=== PATIENT | male | born 1945 | race Caucasian/White ===

== ENCOUNTER → 2017-05-13 | Outpatient (CLI) | payer MEDICARE ==
--- NOTE | 2017-05-13 17:01 | Diagnostic Imaging Report ---
EXAMINATION: PET-CT TECHNIQUE: Serum glucose level at the time of the study is: 132 mg/dL. 12.0 mCi of FDG was administered intravenously followed by obtaining PET images with corresponding noncontrast CT scan images. The CT scan was performed for anatomic correlation and attenuation correction and was not performed according to the diagnostic protocol of the areas covered. The scan was performed from the head to mid thighs. INDICATION: Right lower lobe lung nodule. FINDINGS: There is symmetric FDG uptake in the brain. There is no significant hypermetabolic lesion seen in the neck. There is an intensely hypermetabolic right lower lobe pulmonary nodule with maximum SUV of 7.8. The localizer CT scan demonstrates a 2.1 cm lobulated nodule located in the posterior aspect of the superior segment of the right lower lobe. There is no hypermetabolic other nodules in the lungs or significant hypermetabolism in the dee or mediastinum. This nodule is suspicious for an early lung cancer. There is subcutaneous stranding in the subcutaneous fat along the right side of the pelvis with associated mild hypermetabolism, probably inflammatory related with maximum SUV of 4. There is prominent bowel activity seen within the abdomen and pelvis in a nonfocal fashion, likely physiologic or inflammatory. There is also prominent expected excretion of the tracer in the urinary tract. No suspicious hypermetabolic mass in the abdomen or pelvis seen otherwise. The prostate appears enlarged. IMPRESSION: 1. Significantly hypermetabolic 2.1 cm lung nodule in the superior segment of the right lower lobe highly suspicious for lung cancer. There is no evidence of lymph node spread or distant metastasis. 2. A CT-guided biopsy for tissue diagnosis or surgical resection is recommended. Dictated by: Dictated on workstation # [id number]
== END ==
LOC: RAD 08:38
PROVIDERS: ATTEND Internal Medicine Critical Care Medicine
DX: R91.1 Solitary pulmonary nodule (principal)

== ENCOUNTER → 2017-05-14 | Outpatient (CLI) | payer MEDICARE | LOC: RT 09:35 | PROVIDERS: ATTEND Nurse Practitioner Family | DX: R06.00 Dyspnea, unspecified (principal); R91.1 Solitary pulmonary nodule | CPT/HCPCS: 94060; 94726; 94729 ==

== ENCOUNTER → 2017-06-18 | Outpatient (CLI) | payer MEDICARE ==
[~2017-06-18] VITALS: Ht 188 cm; Wt 95.3 kg
[~2017-06-18] MED LIST: LIDOCAINE 1% INJ 20 ML (XYLOCAINE) VIAL INJ ONE; LIDOCAINE 1% INJ 50 ML (XYLOCAINE) VIAL ONE
[2017-06-18 13:30] VITALS: BP 124/68
[2017-06-18 14:00] VITALS: BP 124/71
--- NOTE | 2017-06-18 15:28 | Diagnostic Imaging Report ---
EXAMINATION: US-guided core biopsy-thyroid. INDICATION: Inferior right thyroid lobe nodule. Current history and physical and other medical records are reviewed prior to the procedure. CONSENT: Informed consent was obtained from the patient. The risks, benefits, potential complications and alternatives were reviewed and all questions answered to the patient's satisfaction. The patient's vital signs, cardiac rhythm, and pulse oximetry with observed throughout the procedure by qualified nursing personnel. Sedation/medications: none. FINDINGS: Solid nodule in the inferior aspect of the thyroid lobe. PROCEDURE: After maximal sterile barrier technique preparation and draping, 1% lidocaine was utilized for local anesthesia. With the patient in supine position, and via anterior approach, a 19-gauge guide needle is introduced into the inferior right thyroid lobe nodule under live ultrasound guidance. After confirming adequate positioning with saved ultrasound images, multiple 20 gauge core biopsy specimens were obtained. The patient tolerated the procedure well with no immediate complications. IMPRESSION: Successful US-guided core biopsy of inferior right thyroid lobe nodule. Dictated by: Dictated on workstation # [id number]
== END ==
LOC: RAD 12:09
PROVIDERS: ATTEND Nurse Practitioner Family
DX: E04.1 Nontoxic single thyroid nodule (principal)
CPT/HCPCS: 76942

== ENCOUNTER → 2017-07-15 | Outpatient (CLI) | payer MEDICARE ==
--- NOTE | 2017-07-16 13:32 | Diagnostic Imaging Report ---
EXAMINATION: I-123 thyroid scan and uptake. INDICATION: Thyroid nodule. FINDINGS: This study was performed following administration of 23 ?Ci of sodium I-123 in capsule form. There are no prior nuclear medicine studies available for comparison. The thyroid ultrasound exam performed on 05/08/2017 noted a 3.3 cm solid mass in the right lobe of the thyroid. The PET/CT exam performed on 05/13/2017 failed to show any hypermetabolic activity in this area. There was increased activity in a 2.1 cm nodule in the right lower lobe. Reportedly, the patient underwent an ultrasound-guided biopsy of the nodule in the right lobe of the thyroid on 06/18/2017. The results of that biopsy are not known to me. On this study, the 4-hour uptake is 3.2% and the 24-hour uptake is 8.62% (normal 10-30%). The reason for this slightly diminished uptake is uncertain. There is fairly even distribution of the radiotracer throughout both lobes of the thyroid. There is no photopenic or area of increased uptake in the right lobe to correspond to the 3.3 cm mass seen on the ultrasound exam. IMPRESSION: 1. There is no defect within the right lobe of the thyroid to correspond with the 3.3 cm nodule in the right lobe of the thyroid. Correlation with the patient's biopsy results would be recommended. 2. No other focal abnormality involving the thyroid gland is noted. 3. The thyroid uptake value is just below normal limits. Dictated on workstation # [id number]
== END ==
LOC: CARD 10:21
PROVIDERS: ATTEND Nurse Practitioner Family
DX: E07.89 Other specified disorders of thyroid (principal)
CPT/HCPCS: 78014

== ENCOUNTER → 2017-08-21 | Outpatient (CLI) | payer MEDICARE ==
[~2017-08-21] MED LIST changes: +BARIUM SUSPENSION 2.1% (VANILLA SILQ) 450 ML PO ONE; +CATHETER FLUSH 10 ML SYR IV PRN; +IOHEXOL 350 MG/ML 100 ML (OMNIPAQUE 350) VIAL IV ONE; -LIDOCAINE 1% INJ 20 ML (XYLOCAINE) VIAL INJ ONE; -LIDOCAINE 1% INJ 50 ML (XYLOCAINE) VIAL ONE; +NS 250 ML (IVPB) BAG IV ONE
--- NOTE | 2017-08-21 12:24 | Diagnostic Imaging Report ---
PROCEDURE: CT chest and abdomen with contrast. TECHNIQUE: Multiple contiguous axial images were obtained through the chest and abdomen after the administration of intravenous contrast. INDICATION: Right lung cancer, shortness of breath. FINDINGS: There is some minimal scarring or atelectasis in the right lung base. The heart size is normal. The thoracic aorta is normal in caliber without evidence of dissection. There are minimal coronary artery calcifications. There is no pathologically enlarged adenopathy in the chest. The left lung is clear. There is no pleural or pericardial fluid. There is no pneumothorax. There are mild degenerative changes in the spine. There is fatty infiltration of the liver. The gallbladder is unremarkable. There is no biliary ductal dilatation. Spleen is normal. Pancreas and adrenal glands are unremarkable. There is a large cyst in the posterior aspect of the left kidney. Kidneys are otherwise unremarkable. The aorta is nonaneurysmal. The bowel gas pattern is nonspecific. The appendix is normal. There is no ascites. There is no free air. There are no focal inflammatory changes. IMPRESSION: Scarring or atelectasis in the right lung base. Fatty infiltration of the liver. Left renal cyst. Mild degenerative changes in the spine. Dictated by: Dictated on workstation # [id number]
== END ==
LOC: CARD 10:08
PROVIDERS: ATTEND Internal Medicine Hematology & Oncology
DX: C34.31 Malignant neoplasm of lower lobe, right bronchus or lung (principal)
CPT/HCPCS: 71260; 74160; 78306

== ENCOUNTER → 2017-11-19 | Outpatient (CLI) | payer MEDICARE ==
--- NOTE | 2017-11-19 12:00 | Diagnostic Imaging Report ---
PROCEDURE: MR imaging cervical spine without contrast. TECHNIQUE: Multiplanar, multisequence MR imaging of the cervical spine was performed without contrast. INDICATION: Neck popping and right-sided neck pain and right neck numbness. No prior studies are available for comparison. Curvature of the cervical spine is normal. The vertebral body marrow signal is unremarkable. No geographic marrow lesion is seen. There is significant multilevel degenerative disk disease with variable disc space narrowing and desiccation and marginal osteophyte formation. There is complete loss of the disc space at the C6-7 level. The cervical cord demonstrate normal homogeneous signal intensity and normal morphology. There is also multilevel facet arthropathy present. C2-3: Asymmetric right posterolateral disc/osteophyte complex does result in moderate narrowing of the right neural foramen. Central canal and left neural foramen are patent. C3-4: Broad-based disc/osteophyte complex and uncovertebral joint degenerative change results in moderate bilateral neural foraminal stenosis. Central canal remains patent. C4-5: There is broad-based disc/osteophyte complex and uncovertebral joint degenerative change. This does result in moderate right and significant left neural foraminal stenosis. Central canal is patent. C5-6: Prominent broad-based disc/osteophyte complex and uncovertebral joint degenerative change resulting in significant bilateral neural foraminal stenosis. The central canal is patent. C6-7: Broad-based disc/osteophyte complex does indent the ventral thecal sac. There is mild central canal narrowing. Neural foramina are patent. C7-T1: Central canal is patent. No significant neural foraminal narrowing is seen. Paraspinous tissues are unremarkable. IMPRESSION: Cervical spondylosis with multilevel central canal and neural foraminal stenosis described level by level above. Dictated by: Dictated on workstation # [id number]
== END ==
LOC: RAD 10:53
PROVIDERS: ATTEND Nurse Practitioner Family
DX: M48.02 Spinal stenosis, cervical region (principal); M99.71 Connective tissue and disc stenosis of intervertebral foramina of cervical region; M50.323 Other cervical disc degeneration at C6-C7 level; M47.812 Spondylosis without myelopathy or radiculopathy, cervical region
CPT/HCPCS: 72141

== ENCOUNTER 2017-12-16 10:22 | Outpatient (RCR) | payer MEDICARE ==
[2017-12-16 10:08] LABS: BASOPHILS # (AUTO) 0.1 10^3/uL (0.0-0.1); BASOPHILS % (AUTO) 1 % (0-10); EOSINOPHILS # (AUTO) 0.2 10^3/uL (0.0-0.3); EOSINOPHILS % (AUTO) 2 % (0-10); HEMATOCRIT 46 % (40-54); HEMOGLOBIN 16.1 G/DL (13.3-17.7); LYMPHOCYTES # (AUTO) 2.2 X 10^3 (1.0-4.0); LYMPHOCYTES % (AUTO) 23 % (12-44); MEAN CORPUSCULAR HEMOGLOBIN 31 PG (25-34); MEAN CORPUSCULAR HGB CONC 35 G/DL (32-36); MEAN CORPUSCULAR VOLUME 90 FL (80-99); MEAN PLATELET VOLUME 10.4 FL (7.4-10.4); MONOCYTES # (AUTO) 0.9 X 10^3 (0.0-1.0); MONOCYTES % (AUTO) 9 % (0-12); NEUTROPHILS # (AUTO) 6.2 X 10^3 (1.8-7.8); NEUTROPHILS % (AUTO) 65 % (42-75); PLATELET COUNT 247 10^3/uL (130-400); RED BLOOD COUNT 5.13 10^6/uL (4.35-5.85); RED CELL DISTRIBUTION WIDTH 13.5 % (10.0-14.5); WHITE BLOOD COUNT 9.5 10^3/uL (4.3-11.0)
[2017-12-16 10:26] LABS: ALANINE AMINOTRANSFERASE 73 U/L (0-55); ALBUMIN 4.5 GM/DL (3.2-4.5); ALKALINE PHOSPHATASE 75 U/L (40-136); BILIRUBIN,TOTAL 0.7 MG/DL (0.1-1.0); BUN/CREATININE RATIO 10; CALCIUM 9.9 MG/DL (8.5-10.1); CARBON DIOXIDE 24 MMOL/L (21-32); CHLORIDE 104 MMOL/L (98-107); CREATININE SERUM 1.15 MG/DL (0.60-1.30); GFR ESTIMATED > 60; GLUCOSE 211 MG/DL (70-105); POTASSIUM 4.4 MMOL/L (3.6-5.0); SODIUM 139 MMOL/L (135-145)
== END 2017-12-18 10:29 | disposition home or self-care (01) ==
LOC: ONC 10:22
PROVIDERS: ATTEND Internal Medicine Hematology & Oncology
DX: C34.31 Malignant neoplasm of lower lobe, right bronchus or lung (principal); E11.9 Type 2 diabetes mellitus without complications; E04.1 Nontoxic single thyroid nodule; E03.9 Hypothyroidism, unspecified; Z79.899 Other long term (current) drug therapy; Z79.4 Long term (current) use of insulin; Z87.891 Personal history of nicotine dependence
CPT/HCPCS: 36415; 80053; 84443; 85025; 99213

== ENCOUNTER 2017-12-25 13:58 | Outpatient (RCR) | payer MEDICARE | END 2017-12-25 14:55 | disposition home or self-care (01) | PROVIDERS: ATTEND Nurse Practitioner Family | DX: M54.2 Cervicalgia (principal) ==

== ENCOUNTER 2018-03-23 12:52 | Outpatient (RCR) | payer MEDICARE ==
[2018-03-23 13:06] LABS: BASOPHILS % (AUTO) 0 % (0-10); EOSINOPHILS # (AUTO) 0.1 10^3/uL (0.0-0.3); EOSINOPHILS % (AUTO) 1 % (0-10); HEMATOCRIT 44 % (40-54); HEMOGLOBIN 15.5 G/DL (13.3-17.7); LYMPHOCYTES # (AUTO) 2.1 X 10^3 (1.0-4.0); LYMPHOCYTES % (AUTO) 22 % (12-44); MEAN CORPUSCULAR HEMOGLOBIN 33 PG (25-34); MEAN CORPUSCULAR HGB CONC 36 G/DL (32-36); MEAN CORPUSCULAR VOLUME 92 FL (80-99); MEAN PLATELET VOLUME 10.2 FL (7.4-10.4); MONOCYTES # (AUTO) 0.8 X 10^3 (0.0-1.0); MONOCYTES % (AUTO) 8 % (0-12); NEUTROPHILS # (AUTO) 6.5 X 10^3 (1.8-7.8); NEUTROPHILS % (AUTO) 69 % (42-75); PLATELET COUNT 206 10^3/uL (130-400); RED BLOOD COUNT 4.76 10^6/uL (4.35-5.85); RED CELL DISTRIBUTION WIDTH 13.5 % (10.0-14.5); WHITE BLOOD COUNT 9.5 10^3/uL (4.3-11.0)
[2018-03-23 13:29] LABS: ALANINE AMINOTRANSFERASE 72 U/L (0-55); ALBUMIN 4.4 GM/DL (3.2-4.5); ALKALINE PHOSPHATASE 68 U/L (40-136); BILIRUBIN,TOTAL 0.6 MG/DL (0.1-1.0); BUN/CREATININE RATIO 14; CARBON DIOXIDE 24 MMOL/L (21-32); CHLORIDE 101 MMOL/L (98-107); CREATININE SERUM 1.18 MG/DL (0.60-1.30); GFR ESTIMATED > 60; GLUCOSE 201 MG/DL (70-105); POTASSIUM 4.3 MMOL/L (3.6-5.0); SODIUM 136 MMOL/L (135-145); TOTAL PROTEIN 7.9 GM/DL (6.4-8.2)
== END 2018-03-29 | disposition home or self-care (01) ==
LOC: ONC 12:52
PROVIDERS: ATTEND Internal Medicine Hematology & Oncology
DX: C34.31 Malignant neoplasm of lower lobe, right bronchus or lung (principal); E04.1 Nontoxic single thyroid nodule; Z79.899 Other long term (current) drug therapy; Z79.4 Long term (current) use of insulin
CPT/HCPCS: 36415; 80053; 84443; 85025; 99213

== ENCOUNTER 2018-07-07 13:21 | Outpatient (RCR) | payer MEDICARE ==
[2018-07-07 13:36] LABS: BASOPHILS # (AUTO) 0.1 10^3/uL (0.0-0.1); BASOPHILS % (AUTO) 1 % (0-10); EOSINOPHILS # (AUTO) 0.2 10^3/uL (0.0-0.3); EOSINOPHILS % (AUTO) 2 % (0-10); HEMATOCRIT 45 % (40-54); HEMOGLOBIN 15.1 G/DL (13.3-17.7); LYMPHOCYTES # (AUTO) 2.2 X 10^3 (1.0-4.0); LYMPHOCYTES % (AUTO) 23 % (12-44); MEAN CORPUSCULAR HEMOGLOBIN 31 PG (25-34); MEAN CORPUSCULAR HGB CONC 34 G/DL (32-36); MEAN CORPUSCULAR VOLUME 92 FL (80-99); MEAN PLATELET VOLUME 10.4 FL (7.4-10.4); MONOCYTES # (AUTO) 0.9 X 10^3 (0.0-1.0); MONOCYTES % (AUTO) 9 % (0-12); NEUTROPHILS # (AUTO) 6.6 X 10^3 (1.8-7.8); NEUTROPHILS % (AUTO) 66 % (42-75); PLATELET COUNT 240 10^3/uL (130-400); RED CELL DISTRIBUTION WIDTH 13.7 % (10.0-14.5); WHITE BLOOD COUNT 9.9 10^3/uL (4.3-11.0)
[2018-07-07 13:56] LABS: ALANINE AMINOTRANSFERASE 70 U/L (0-55); ALBUMIN 4.5 GM/DL (3.2-4.5); ALKALINE PHOSPHATASE 71 U/L (40-136); BILIRUBIN,TOTAL 0.6 MG/DL (0.1-1.0); BUN/CREATININE RATIO 15; CALCIUM 9.5 MG/DL (8.5-10.1); CARBON DIOXIDE 24 MMOL/L (21-32); CHLORIDE 102 MMOL/L (98-107); CREATININE SERUM 1.15 MG/DL (0.60-1.30); GFR ESTIMATED > 60; GLUCOSE 235 MG/DL (70-105); POTASSIUM 4.1 MMOL/L (3.6-5.0); SODIUM 135 MMOL/L (135-145); TOTAL PROTEIN 7.6 GM/DL (6.4-8.2)
== END 2018-10-05 | disposition home or self-care (01) ==
LOC: ONC 13:21
PROVIDERS: ATTEND Internal Medicine Hematology & Oncology
DX: C34.31 Malignant neoplasm of lower lobe, right bronchus or lung (principal); E11.9 Type 2 diabetes mellitus without complications; E04.1 Nontoxic single thyroid nodule; E03.9 Hypothyroidism, unspecified; Z79.4 Long term (current) use of insulin; Z79.899 Other long term (current) drug therapy; Z87.891 Personal history of nicotine dependence
CPT/HCPCS: 36415; 80053; 84443; 85025; 99213

== ENCOUNTER → 2018-07-21 | Outpatient (CLI) | payer MEDICARE ==
[~2018-07-21] MED LIST changes: -BARIUM SUSPENSION 2.1% (VANILLA SILQ) 450 ML PO ONE; -CATHETER FLUSH 10 ML SYR IV PRN; -IOHEXOL 350 MG/ML 100 ML (OMNIPAQUE 350) VIAL IV ONE; -NS 250 ML (IVPB) BAG IV ONE; +REGADENOSON 0.4 MG/5 ML SYR (LEXISCAN) IV ONE
[2018-07-21 13:08] VITALS: BP 163/92
[2018-07-21 13:11] VITALS: BP 161/85
== END ==
LOC: CARD 11:44
PROVIDERS: ATTEND Nurse Practitioner Family
DX: I77.89 Other specified disorders of arteries and arterioles (principal); I10 Essential (primary) hypertension; R06.02 Shortness of breath; R53.1 Weakness
CPT/HCPCS: 78452; 93017

== ENCOUNTER → 2018-09-07 | Outpatient (CLI) | payer MEDICARE | LOC: CARD 12:56 | PROVIDERS: ATTEND Nurse Practitioner Family | DX: I10 Essential (primary) hypertension (principal); R06.02 Shortness of breath; R53.1 Weakness | CPT/HCPCS: 93306 ==

== ENCOUNTER 2018-10-13 12:31 | Outpatient (RCR) | payer MEDICARE ==
[2018-10-13 13:13] LABS: BASOPHILS # (AUTO) 0.1 10^3/uL (0.0-0.1); BASOPHILS % (AUTO) 1 % (0-10); EOSINOPHILS # (AUTO) 0.1 10^3/uL (0.0-0.3); EOSINOPHILS % (AUTO) 2 % (0-10); HEMATOCRIT 45 % (40-54); HEMOGLOBIN 15.4 G/DL (13.3-17.7); LYMPHOCYTES # (AUTO) 2.6 X 10^3 (1.0-4.0); LYMPHOCYTES % (AUTO) 28 % (12-44); MEAN CORPUSCULAR HEMOGLOBIN 31 PG (25-34); MEAN CORPUSCULAR HGB CONC 35 G/DL (32-36); MEAN CORPUSCULAR VOLUME 91 FL (80-99); MEAN PLATELET VOLUME 10.5 FL (7.4-10.4); MONOCYTES # (AUTO) 0.7 X 10^3 (0.0-1.0); MONOCYTES % (AUTO) 8 % (0-12); NEUTROPHILS # (AUTO) 5.8 X 10^3 (1.8-7.8); NEUTROPHILS % (AUTO) 62 % (42-75); PLATELET COUNT 207 10^3/uL (130-400); RED CELL DISTRIBUTION WIDTH 13.5 % (10.0-14.5); WHITE BLOOD COUNT 9.4 10^3/uL (4.3-11.0)
[2018-10-13 13:27] LABS: ALANINE AMINOTRANSFERASE 95 U/L (0-55); ALBUMIN 4.5 GM/DL (3.2-4.5); ALKALINE PHOSPHATASE 68 U/L (40-136); BILIRUBIN,TOTAL 0.7 MG/DL (0.1-1.0); BUN/CREATININE RATIO 14; CALCIUM 10.2 MG/DL (8.5-10.1); CARBON DIOXIDE 22 MMOL/L (21-32); CHLORIDE 103 MMOL/L (98-107); CREATININE SERUM 1.17 MG/DL (0.60-1.30); GFR ESTIMATED > 60; GLUCOSE 209 MG/DL (70-105); POTASSIUM 4.3 MMOL/L (3.6-5.0); SODIUM 136 MMOL/L (135-145); TOTAL PROTEIN 7.7 GM/DL (6.4-8.2)
== END 2019-01-11 | disposition home or self-care (01) ==
LOC: ONC 12:31
PROVIDERS: ATTEND Internal Medicine Hematology & Oncology
DX: C34.31 Malignant neoplasm of lower lobe, right bronchus or lung (principal); E11.9 Type 2 diabetes mellitus without complications; E04.1 Nontoxic single thyroid nodule; E03.9 Hypothyroidism, unspecified; Z79.4 Long term (current) use of insulin; Z79.899 Other long term (current) drug therapy; Z87.891 Personal history of nicotine dependence
CPT/HCPCS: 36415; 80053; 84443; 85025; 99213

== ENCOUNTER 2019-04-12 13:42 | Outpatient (RCR) | payer MEDICARE ==
[2019-01-19 13:17] LABS: BASOPHILS # (AUTO) 0.1 10^3/uL (0.0-0.1); BASOPHILS % (AUTO) 1 % (0-10); EOSINOPHILS # (AUTO) 0.2 10^3/uL (0.0-0.3); EOSINOPHILS % (AUTO) 2 % (0-10); HEMATOCRIT 46 % (40-54); HEMOGLOBIN 15.7 G/DL (13.3-17.7); LYMPHOCYTES # (AUTO) 2.5 X 10^3 (1.0-4.0); LYMPHOCYTES % (AUTO) 26 % (12-44); MEAN CORPUSCULAR HEMOGLOBIN 31 PG (25-34); MEAN CORPUSCULAR HGB CONC 34 G/DL (32-36); MEAN CORPUSCULAR VOLUME 91 FL (80-99); MEAN PLATELET VOLUME 10.3 FL (7.4-10.4); MONOCYTES % (AUTO) 10 % (0-12); NEUTROPHILS # (AUTO) 5.9 X 10^3 (1.8-7.8); NEUTROPHILS % (AUTO) 62 % (42-75); PLATELET COUNT 207 10^3/uL (130-400); RED CELL DISTRIBUTION WIDTH 13.6 % (10.0-14.5); WHITE BLOOD COUNT 9.6 10^3/uL (4.3-11.0)
[2019-01-19 13:37] LABS: ALANINE AMINOTRANSFERASE 75 U/L (0-55); ALBUMIN 4.4 GM/DL (3.2-4.5); ALKALINE PHOSPHATASE 77 U/L (40-136); BILIRUBIN,TOTAL 0.6 MG/DL (0.1-1.0); BUN/CREATININE RATIO 12; CALCIUM 10.2 MG/DL (8.5-10.1); CARBON DIOXIDE 24 MMOL/L (21-32); CHLORIDE 101 MMOL/L (98-107); CREATININE SERUM 1.12 MG/DL (0.60-1.30); GFR ESTIMATED > 60; GLUCOSE 200 MG/DL (70-105); POTASSIUM 4.4 MMOL/L (3.6-5.0); SODIUM 134 MMOL/L (135-145); TOTAL PROTEIN 7.8 GM/DL (6.4-8.2)
[2019-04-12 14:40] LABS: BASOPHILS # (AUTO) 0.1 10^3/uL (0.0-0.1); BASOPHILS % (AUTO) 1 % (0-10); EOSINOPHILS # (AUTO) 0.2 10^3/uL (0.0-0.3); EOSINOPHILS % (AUTO) 2 % (0-10); HEMATOCRIT 45 % (40-54); LYMPHOCYTES # (AUTO) 2.7 X 10^3 (1.0-4.0); LYMPHOCYTES % (AUTO) 25 % (12-44); MEAN CORPUSCULAR HEMOGLOBIN 31 PG (25-34); MEAN CORPUSCULAR HGB CONC 33 G/DL (32-36); MEAN CORPUSCULAR VOLUME 91 FL (80-99); MEAN PLATELET VOLUME 10.1 FL (7.4-10.4); MONOCYTES % (AUTO) 9 % (0-12); NEUTROPHILS # (AUTO) 7.1 X 10^3 (1.8-7.8); NEUTROPHILS % (AUTO) 65 % (42-75); PLATELET COUNT 229 10^3/uL (130-400); RED CELL DISTRIBUTION WIDTH 13.8 % (10.0-14.5)
[2019-04-12 14:55] LABS: ALANINE AMINOTRANSFERASE 65 U/L (0-55); ALBUMIN 4.3 GM/DL (3.2-4.5); ALKALINE PHOSPHATASE 69 U/L (40-136); BILIRUBIN,TOTAL 0.5 MG/DL (0.1-1.0); BUN/CREATININE RATIO 13; CALCIUM 9.9 MG/DL (8.5-10.1); CARBON DIOXIDE 22 MMOL/L (21-32); CHLORIDE 104 MMOL/L (98-107); CREATININE SERUM 1.09 MG/DL (0.60-1.30); GFR ESTIMATED > 60; GLUCOSE 163 MG/DL (70-105); POTASSIUM 4.2 MMOL/L (3.6-5.0); SODIUM 137 MMOL/L (135-145); TOTAL PROTEIN 7.6 GM/DL (6.4-8.2)
== END 2019-04-19 | disposition home or self-care (01) ==
LOC: ONC 13:42
PROVIDERS: ATTEND Internal Medicine Hematology & Oncology
DX: C34.31 Malignant neoplasm of lower lobe, right bronchus or lung (principal); E11.9 Type 2 diabetes mellitus without complications; E04.1 Nontoxic single thyroid nodule; E03.9 Hypothyroidism, unspecified; Z79.4 Long term (current) use of insulin; Z79.899 Other long term (current) drug therapy; Z87.891 Personal history of nicotine dependence
CPT/HCPCS: 36415; 80053; 84443; 85025; 99213

== ENCOUNTER → 2019-12-03 | Outpatient (CLI) | payer MEDICARE ==
[~2019-12-03] MED LIST changes: +CATHETER FLUSH 10 ML SYR IV PRN; +HOLD METFORMIN - RECEIVED CONTRAST 20 ML VIAL IV SCH; +IOHEXOL 350 MG/ML 100 ML (OMNIPAQUE 350) VIAL IV ONE; +NS 100 ML (IVPB) BAG IV ONE; -REGADENOSON 0.4 MG/5 ML SYR (LEXISCAN) IV ONE
[2019-12-03] MEDS: CATHETER FLUSH 10 ML SYR IV PRN ×2 (11:44→11:45)
--- NOTE | 2019-12-03 12:23 | Diagnostic Imaging Report ---
PROCEDURE: CT chest with contrast only. TECHNIQUE: Multiple contiguous axial images were obtained through the chest after administration of intravenous contrast. Auto Exposure Controls were utilized during the CT exam to meet ALARA standards for radiation dose reduction. 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 No current complaints its compared with study 08/21/2017. Post surgical changes to the right lower lung again noted. There is very mild linear zones of keegan-sutural scarring and trace atelectasis. No findings to suggest neoplastic recurrence. The contralateral left lung is well-expanded clear and nonfocal. Heterogeneous nodularity in the right thyroid lobe stable. No pathological-appearing hilar, mediastinal or axillary lymph nodes. There is no pleural or pericardial effusion. No suspicious lytic or sclerotic bony lesion. Visualized upper abdomen reveals partially visualized simple appearing left renal cortical cyst. Small right hepatic lobe nodule is believed cystic and not appreciably changed from 2018. The adrenals are negative. IMPRESSION: No findings of neoplastic recurrence or metastatic disease. No acute appearing abnormality. Dictated by: Dictated on workstation # [id number]
== END ==
LOC: RAD FS 11:40
PROVIDERS: ATTEND Nurse Practitioner Family
DX: C34.31 Malignant neoplasm of lower lobe, right bronchus or lung (principal); E04.1 Nontoxic single thyroid nodule; Z98.890 Other specified postprocedural states
CPT/HCPCS: 71260

== ENCOUNTER → 2019-12-03 | Outpatient (CLI) | payer MEDICARE ==
[2019-12-03 10:53] LABS: BASOPHILS % (AUTO) 1 % (0-10); EOSINOPHILS % (AUTO) 1 % (0-10); HEMATOCRIT 45 % (40-54); HEMOGLOBIN 15.2 G/DL (13.3-17.7); LYMPHOCYTES % (AUTO) 24 % (12-44); MEAN CORPUSCULAR HEMOGLOBIN 31 PG (25-34); MEAN CORPUSCULAR HGB CONC 34 G/DL (32-36); MEAN CORPUSCULAR VOLUME 92 FL (80-99); MEAN PLATELET VOLUME 11.1 FL (7.4-10.4); MONOCYTES % (AUTO) 7 % (0-12); NEUTROPHILS % (AUTO) 67 % (42-75); PLATELET COUNT 190 10^3/uL (130-400); RED CELL DISTRIBUTION WIDTH 13.3 % (10.0-14.5); WHITE BLOOD COUNT 8.4 10^3/uL (4.3-11.0)
[2019-12-03 10:54] LABS: BASOPHILS # (AUTO) 0.1 10^3/uL (0.0-0.1); EOSINOPHILS # (AUTO) 0.1 10^3/uL (0.0-0.3); MONOCYTES # (AUTO) 0.6 X 10^3 (0.0-1.0); NEUTROPHILS # (AUTO) 5.6 X 10^3 (1.8-7.8)
[2019-12-03 11:05] LABS: ALANINE AMINOTRANSFERASE 61 U/L (0-55); ALKALINE PHOSPHATASE 85 U/L (40-136); BILIRUBIN,TOTAL 0.6 MG/DL (0.1-1.0); BUN/CREATININE RATIO 13; CALCIUM 9.6 MG/DL (8.5-10.1); CARBON DIOXIDE 23 MMOL/L (21-32); CHLORIDE 99 MMOL/L (98-107); CREATININE SERUM 1.01 MG/DL (0.60-1.30); GFR ESTIMATED > 60; GLUCOSE 187 MG/DL (70-105); POTASSIUM 4.5 MMOL/L (3.6-5.0); SODIUM 137 MMOL/L (135-145); TOTAL PROTEIN 7.6 GM/DL (6.4-8.2)
[2019-12-03 11:06] LABS: ALBUMIN 4.4 GM/DL (3.2-4.5)
== END ==
LOC: LAB FS 09:55
PROVIDERS: ATTEND Nurse Practitioner Adult Health
DX: C34.31 Malignant neoplasm of lower lobe, right bronchus or lung (principal); E04.1 Nontoxic single thyroid nodule
CPT/HCPCS: 36415; 80053; 84443; 85025

== ENCOUNTER → 2019-12-06 | Outpatient (CLI) | payer MEDICARE | LOC: EDSTATUS 04-20 14:10 → ONC 13:22 | PROVIDERS: ATTEND Internal Medicine Hematology & Oncology | DX: C34.31 Malignant neoplasm of lower lobe, right bronchus or lung (principal); E04.1 Nontoxic single thyroid nodule; Z90.2 Acquired absence of lung [part of] | CPT/HCPCS: 99213 ==

== ENCOUNTER → 2020-07-19 | Outpatient (CLI) | payer MEDICARE ==
[2020-07-19 15:32] LABS: BASOPHILS # (AUTO) 0.1 10^3/uL (0.0-0.1); BASOPHILS % (AUTO) 1 % (0-10); EOSINOPHILS # (AUTO) 0.2 10^3/uL (0.0-0.3); EOSINOPHILS % (AUTO) 2 % (0-10); HEMATOCRIT 44 % (40-54); LYMPHOCYTES # (AUTO) 2.2 X 10^3 (1.0-4.0); LYMPHOCYTES % (AUTO) 25 % (12-44); MEAN CORPUSCULAR HEMOGLOBIN 31 pg (25-34); MEAN CORPUSCULAR HGB CONC 34 g/dL (32-36); MEAN CORPUSCULAR VOLUME 93 fL (80-99); MEAN PLATELET VOLUME 11.1 fL (9.0-12.2); MONOCYTES # (AUTO) 0.7 X 10^3 (0.0-1.0); MONOCYTES % (AUTO) 8 % (0-12); NEUTROPHILS # (AUTO) 5.9 X 10^3 (1.8-7.8); NEUTROPHILS % (AUTO) 65 % (42-75); PLATELET COUNT 217 10^3/uL (130-400); WHITE BLOOD COUNT 9.1 10^3/uL (4.3-11.0)
[2020-07-19 15:50] LABS: ALBUMIN 4.3 GM/DL (3.2-4.5); BILIRUBIN,TOTAL 0.5 MG/DL (0.1-1.0); CALCIUM 9.7 MG/DL (8.5-10.1); CREATININE SERUM 1.21 MG/DL (0.60-1.30); POTASSIUM 4.3 MMOL/L (3.6-5.0); TOTAL PROTEIN 7.7 GM/DL (6.4-8.2)
== END ==
LOC: ONC 13:36
PROVIDERS: ATTEND Internal Medicine Hematology & Oncology
DX: C34.90 Malignant neoplasm of unspecified part of unspecified bronchus or lung (principal)
CPT/HCPCS: 80053; 84443; 85025

== ENCOUNTER → 2020-11-21 | Outpatient (CLI) | payer MEDICARE ==
--- NOTE | 2020-11-21 13:46 | Diagnostic Imaging Report ---
PROCEDURE: CT head without contrast. TECHNIQUE: Multiple contiguous axial images were obtained through the brain without the use of intravenous contrast. Auto Exposure Controls were utilized during the CT exam to meet ALARA standards for radiation dose reduction. INDICATION: Memory loss. History of lung cancer. COMPARISON: None FINDINGS: The ventricles and cortical sulci are diffusely prominent, compatible with age-related volume loss. There are confluent areas of abnormal, low attenuation in the periventricular white matter. This is consistent with small vessel ischemic changes; age-indeterminate. There is no prior study available for comparison. There is no midline shift or mass-effect. No acute intra-axial hemorrhage is seen. There are no abnormal areas of increased or decreased density to suggest acute hemorrhage or edema. No extra-axial masses or collections are present. The bony calvarium is intact. The visualized paranasal sinuses are unremarkable. The mastoid air cells are clear. IMPRESSION: 1. No acute intracranial abnormality. No CT evidence of mass, acute infarct or intracranial hemorrhage. 2. Small vessel ischemic changes in the periventricular and subcortical white matter; likely chronic. Dictated by: Dictated on workstation # [id number]
== END ==
LOC: RAD FS 13:02
PROVIDERS: ATTEND Internal Medicine
DX: I67.82 Cerebral ischemia (principal); R90.82 White matter disease, unspecified; Z85.118 Personal history of other malignant neoplasm of bronchus and lung
CPT/HCPCS: 70450

== ENCOUNTER → 2021-01-10 | Outpatient (CLI) | payer MEDICARE ==
[2021-01-10 09:02] LABS: HEMATOCRIT 47 % (40-54); HEMOGLOBIN 15.8 G/DL (13.3-17.7); MEAN CORPUSCULAR HEMOGLOBIN 31 PG (25-34); MEAN CORPUSCULAR HGB CONC 34 G/DL (32-36); MEAN CORPUSCULAR VOLUME 91 FL (80-99); PLATELET COUNT 174 10^3/uL (130-400); WHITE BLOOD COUNT 9.4 10^3/uL (4.3-11.0)
[2021-01-10 09:03] LABS: BASOPHILS # (AUTO) 0.1 10^3/uL (0.0-0.1); BASOPHILS % (AUTO) 1 % (0-10); EOSINOPHILS # (AUTO) 0.2 10^3/uL (0.0-0.3); EOSINOPHILS % (AUTO) 3 % (0-10); LYMPHOCYTES # (AUTO) 2.3 X 10^3 (1.0-4.0); LYMPHOCYTES % (AUTO) 24 % (12-44); MEAN PLATELET VOLUME 10.2 FL (7.4-10.4); MONOCYTES # (AUTO) 0.7 X 10^3 (0.0-1.0); MONOCYTES % (AUTO) 8 % (0-12); NEUTROPHILS % (AUTO) 64 % (42-75)
[2021-01-10 09:22] LABS: BUN/CREATININE RATIO 14; CARBON DIOXIDE 25 MMOL/L (21-32); CHLORIDE 99 MMOL/L (98-107); CREATININE SERUM 1.06 MG/DL (0.60-1.30); GFR ESTIMATED > 60; POTASSIUM 4.6 MMOL/L (3.6-5.0); SODIUM 135 MMOL/L (135-145)
[2021-01-10 09:23] LABS: ALANINE AMINOTRANSFERASE 74 U/L (0-55); ALBUMIN 4.6 GM/DL (3.2-4.5); ALKALINE PHOSPHATASE 108 U/L (40-136); BILIRUBIN,TOTAL 0.6 MG/DL (0.1-1.0); CALCIUM 9.8 MG/DL (8.5-10.1); GLUCOSE 307 MG/DL (70-105); TOTAL PROTEIN 8.1 GM/DL (6.4-8.2)
--- NOTE | 2021-01-10 11:04 | Diagnostic Imaging Report ---
EXAMINATION: CT chest and abdomen with intravenous contrast. TECHNIQUE: Multiple contiguous axial images were obtained through the chest and abdomen after the uneventful administration of intravenous contrast. All CT scans use one or more of the following dose optimizing techniques: automated exposure control, MA and/or KvP adjustment based on patient size and exam type or iterative reconstruction. HISTORY: Lung cancer. COMPARISON: 12/03/2019 FINDINGS: There is no edema or pneumonia. No pleural effusion. No pneumothorax. No suspicious nodules. There are postsurgical changes of right lower lobectomy. Lungs are mildly emphysematous. There are a few areas of scarring in the right lung. There is no axillary or supraclavicular lymphadenopathy. There is no mediastinal lymphadenopathy. Right-sided thyroid nodules are unchanged. Heart size is normal. There are mild coronary artery calcifications. No pericardial effusion. Aorta is normal in caliber. Liver surface is nodular consistent with cirrhosis. No focal liver lesions are seen. There is no biliary ductal dilation. Gallbladder is normal. Pancreas is normal. Spleen is normal. Adrenal glands are normal. Cyst is present in the left kidney. There are no suspicious renal lesions. There is no hydronephrosis. Visualized bowel is normal in caliber without obstruction or inflammation. There is abdominal wall scarring. No free fluid or air. No abdominal lymphadenopathy. Aorta is normal in caliber without aneurysm. There are no suspicious osseous lesions. IMPRESSION: 1. Status post right lower lobectomy without local recurrence or metastatic disease. 2. Nodular liver surface consistent with cirrhosis without suspicious liver lesion. Dictated by: Dictated on workstation # [id number]
== END ==
LOC: RAD FS 08:16
PROVIDERS: ATTEND Internal Medicine Hematology & Oncology
DX: K76.89 Other specified diseases of liver (principal); Z85.118 Personal history of other malignant neoplasm of bronchus and lung; Z90.2 Acquired absence of lung [part of]
CPT/HCPCS: 36415; 71260; 74160; 80053; 84443; 85025

== ENCOUNTER → 2021-01-11 | Outpatient (CLI) | payer MEDICARE ==
--- NOTE | 2021-01-11 12:53 | Diagnostic Imaging Report ---
INDICATION: Thyroid nodule, history of right thyroid mass biopsy. TECHNIQUE: Grayscale sonographic images of the thyroid gland. CORRELATION STUDY: 05/08/2017. FINDINGS: RIGHT LOBE: 5.0 x 2.7 x 1.9 cm. Dominant, hypoechoic mass at the inferior pole at 2.9 x 2.8 x 2.1 cm (previously 3.3 x 2.8 x 2.4 cm). Additional curvilinear area of calcification with shadowing is present, 0.8 x 0.5 x 0.9 cm. LEFT LOBE: 4.2 x 2.1 x 1.4 cm. Small area of cystic change about the superior pole, 0.4 x 0.4 x 0.3 cm. Calcification at 0.4 x 0.4 x 0.3 cm in the mid aspect. Small calcification in the isthmus at 4 mm in size. IMPRESSION: Bilateral thyroid nodules including areas of calcification again demonstrated. Dominant mass at the right lobe is overall stable to perhaps slightly smaller from prior. (Normal gland size: 4-5 x 2 x 2 cm) Dictated by: Dictated on workstation # [id number]
== END ==
LOC: RAD FS 10:56
DX: E04.2 Nontoxic multinodular goiter (principal); E07.9 Disorder of thyroid, unspecified
CPT/HCPCS: 76536

== ENCOUNTER → 2021-01-18 | Outpatient (CLI) | payer MEDICARE | LOC: ONC 12:59 | PROVIDERS: ATTEND Internal Medicine Hematology & Oncology | DX: C34.31 Malignant neoplasm of lower lobe, right bronchus or lung (principal); E04.2 Nontoxic multinodular goiter; K74.60 Unspecified cirrhosis of liver; E66.9 Obesity, unspecified; Z90.2 Acquired absence of lung [part of] | CPT/HCPCS: 99213 ==

== ENCOUNTER 2021-06-06 22:22 | Emergency (ER) | payer MEDICARE ==
[~2021-06-06] VITALS: Ht 187 cm; Wt 106.8 kg
[2021-06-06 22:22] VITALS: BP 140/58
[2021-06-06] MEDS ORDERED: NS IV 1000 ML 1,000 ML IV STA (22:31)
[2021-06-06] MEDS ORDERED: METOCLOPRAMIDE INJ 10 MG/2 ML (REGLAN) IVP STA (22:35)
--- NOTE | 2021-06-06 22:35 | ED General ---
General Stated Complaint: N/V SYNCOPAL EPISODE Source of Information: Patient, EMS History of Present Illness Date Seen by Provider: Jun 06, 2021 Time Seen by Provider: 22:22 Initial Comments 76-year-old male presenting with complaint of nausea, vomiting, subjective fever and rigors. He states this is been going on all day for him. Tonight he had thrown up and had a fainting or syncopal episode. He denies having pain anywhere. He denies any diarrhea. He has been a little more short of breath than usual and having a cough throughout the day. He has had subjective fever and chills but has not taken his temperature. He was too weak to get up off the floor and EMS was called to help lift him up. However since he was so weak and had been vomiting they requested he be transported for evaluation. He was given 4 mg of Zofran IV to help with his nausea. Patient reports having no nausea on arrival to the ED, but did complain of nausea after few minutes. He reported some decreased urine production and discomfort with urination today. He is diabetic and his sugar was 272. He reports last eating around 5 PM. Associated Systoms: No Chest Pain; Cough; No Diaphoresis; Fever/Chills (Subjective); No Headaches; Malaise, Nausea/Vomiting; No Rash, No Seizure; Shortness of Air, Syncope, Weakness Allergies and Home Medications Allergies Coded Allergies: No Known Drug Allergies (Unverified , 06/18/17) Patient Home Medication List Home Medication List Reviewed: Yes Metoclopramide HCl (Metoclopramide HCl) 10 Mg Tablet, 10 MG PO TID PRN for NAUSEA/VOMITING Prescribed by: EMIGDIO MAC on 06/07/21 0208 Review of Systems Review of Systems Constitutional: see HPI EENTM: no symptoms reported Respiratory: see HPI Cardiovascular: see HPI; No chest pain Gastrointestinal: see HPI; No diarrhea Genitourinary: decreased output Musculoskeletal: no symptoms reported Skin: No rash Psychiatric/Neurological: Denies Headache; Weakness (Generalized) Past Kcbuoaq-Senwoz-Dduvcj Hx Past Medical History Surgery/Hospitalization HX: Right inferior lobectomy for lung cancer Surgeries: Yes Lobectomy Respiratory: Yes (lung cancer) COPD Cardiac: Yes High Cholesterol, Hypertension Endocrine: Yes Diabetes, Insulin dep Physical Exam Vital Signs Vital Signs - First Documented 06/06/21 22:22 Temp 37.6 Pulse 94 Resp 16 B/P (MAP) 140/58 (85) Pulse Ox 91 O2 Delivery Room Air Capillary Refill : Height, Weight, BMI Height: 6'2.00" Weight: 226lbs. 0.0oz. 95.136024cg; 27.0 BMI Method: General Appearance: Chronically ill, Mild Distress HEENT: PERRL/EOMI, Pharynx Normal Neck: Full Range of Motion, Normal Inspection, Non Tender, Supple Respiratory: Chest Non Tender, No Accessory Muscle Use, No Respiratory Distress, Decreased Breath Sounds Cardiovascular: Regular Rate, Rhythm, Normal Peripheral Pulses Gastrointestinal: No Pulsatile Mass, Non Tender, Soft, Abnormal Bowel Sounds (hypoactive bowel sounds) Rectal: Deferred Extremity: Normal Capillary Refill, Normal Inspection Neurologic/Psychiatric: Alert, Oriented x3, synthetic filament spinner II-XII Norm as Tested Skin: Normal Color, Warm/Dry Focused Exam Lactate Level 06/06/21 23:10: Lactic Acid Level 3.25*H Lactic Acid Level Laboratory Tests Test 06/06/21 23:10 Lactic Acid Level 3.25 MMOL/L (0.50-2.00) *H Progress/Results/Core Measures Suspected Sepsis SIRS Temperature: Pulse: Respiratory Rate: Laboratory Tests 06/06/21 23:10: White Blood Count 10.8 Blood Pressure / Mean: 06/06/21 23:10: Lactic Acid Level 3.25*H Laboratory Tests 06/06/21 23:10: Creatinine 1.06, Platelet Count 136, Total Bilirubin 0.5 Results/Orders Lab Results Laboratory Tests Test 06/06/21 23:10 06/07/21 01:10 Range/Units White Blood Count 10.8 4.3-11.0 10^3/uL Red Blood Count 4.44 4.30-5.52 10^6/uL Hemoglobin 13.9 13.3-17.7 g/dL Hematocrit 41 40-54 % Mean Corpuscular Volume 91 80-99 fL Mean Corpuscular Hemoglobin 31 25-34 pg Mean Corpuscular Hemoglobin Concent 34 32-36 g/dL Red Cell Distribution Width 13.6 10.0-14.5 % Platelet Count 136 130-400 10^3/uL Mean Platelet Volume 10.8 9.0-12.2 fL Immature Granulocyte % (Auto) 1 % Neutrophils (%) (Auto) 86 H 42-75 % Lymphocytes (%) (Auto) 5 L 12-44 % Monocytes (%) (Auto) 8 0-12 % Eosinophils (%) (Auto) 0 0-10 % Basophils (%) (Auto) 1 0-10 % Neutrophils # (Auto) 9.3 H 1.8-7.8 X 10^3 Lymphocytes # (Auto) 0.5 L 1.0-4.0 X 10^3 Monocytes # (Auto) 0.8 0.0-1.0 X 10^3 Eosinophils # (Auto) 0.0 0.0-0.3 10^3/uL Basophils # (Auto) 0.1 0.0-0.1 10^3/uL Immature Granulocyte # (Auto) 0.1 0.0-0.1 10^3/uL Neutrophils % (Manual) 63 % Lymphocytes % (Manual) 4 % Monocytes % (Manual) 7 % Eosinophils % (Manual) 0 % Basophils % (Manual) 0 % Band Neutrophils 22 % Atypical Lymphocytes 4 % Platelet Estimate DECREASED Blood Morphology Comment NORMAL Sodium Level 134 L 135-145 MMOL/L Potassium Level 3.9 3.6-5.0 MMOL/L Chloride Level 99 98-107 MMOL/L Carbon Dioxide Level 21 21-32 MMOL/L Anion Gap 14 5-14 MMOL/L Blood Urea Nitrogen 18 7-18 MG/DL Creatinine 1.06 0.60-1.30 MG/DL Estimat Glomerular Filtration Rate 68 BUN/Creatinine Ratio 17 Glucose Level 294 H 70-105 MG/DL Lactic Acid Level 3.25 *H 0.50-2.00 MMOL/L Calcium Level 9.2 8.5-10.1 MG/DL Corrected Calcium 9.3 8.5-10.1 MG/DL Magnesium Level 1.5 L 1.6-2.4 MG/DL Total Bilirubin 0.5 0.1-1.0 MG/DL Aspartate Amino Transf (AST/SGOT) 61 H 5-34 U/L Alanine Aminotransferase (ALT/SGPT) 56 H 0-55 U/L Alkaline Phosphatase 106 40-136 U/L Troponin I < 0.30 <0.30 NG/ML C-Reactive Protein < 0.30 <0.50 MG/DL Pro-B-Type Natriuretic Peptide 214.2 H <75.0 PG/ML Total Protein 7.1 6.4-8.2 GM/DL Albumin 3.9 3.2-4.5 GM/DL Lipase 53 8-78 U/L Urine Color YELLOW Urine Clarity CLEAR Urine pH 6.0 5-9 Urine Specific [place] 1.025 H 1.016-1.022 Urine Protein NEGATIVE NEGATIVE Urine Glucose (UA) 3+ H NEGATIVE Urine Ketones TRACE H NEGATIVE Urine Nitrite NEGATIVE NEGATIVE Urine Bilirubin NEGATIVE NEGATIVE Urine Urobilinogen 0.2 < = 1.0 MG/DL Urine Leukocyte Esterase NEGATIVE NEGATIVE Urine RBC (Auto) NEGATIVE NEGATIVE Urine RBC NONE /HPF Urine WBC 0-2 /HPF Urine Squamous Epithelial Cells 0-2 /HPF Urine Crystals NONE /LPF Urine Bacteria NEGATIVE /HPF Urine Casts NONE /LPF Urine Mucus SMALL H /LPF Urine Culture Indicated NO My Orders Orders - EMIGDIO MAC MD Cbc With Automated Diff (06/06/21 22:31) Comprehensive Metabolic Panel (06/06/21 22:31) Blood Culture (06/06/21 22:31) Chest 1 View Ap/Pa Only (06/06/21 22:31) Magnesium (06/06/21 22:31) Ekg Tracing (06/06/21 22:31) O2 (06/06/21 22:31) Ed Iv/Invasive Line Start (06/06/21 22:31) Monitor-Rhythm Ecg Trace Only (06/06/21 22:31) Crp Fs (06/06/21 22:31) Lactic Acid Analyzer (06/06/21 22:31) Probnp Fs (06/06/21 22:31) Troponin I Fs (06/06/21 22:31) Lipase (06/06/21 22:31) Ua Culture If Indicated (06/06/21 22:31) Ns Iv 1000 Ml (Sodium Chloride 0.9%) (06/06/21 22:31) Metoclopramide Injection (Reglan Injecti (06/06/21 22:35) Ct Abdomen/Pelvis W (06/06/21 22:36) Iohexol Injection (Omnipaque 350 Mg/Ml 1 (06/06/21 23:00) Received Contrast (Hold Metformin- Contr (06/06/21 23:00) Sodium Chloride Flush (Catheter Flush Sy (06/06/21 23:00) Ns (Ivpb) (Sodium Chloride 0.9% Ivpb Bag (06/06/21 23:00) Manual Differential (06/06/21 23:10) Rx-Metoclopramide Tab (Rx-Reglan Tab) (06/07/21 02:15) Rx-Metoclopramide Tab (Rx-Reglan Tab) (06/07/21 02:30) Medications Given in ED Current Medications Medications Dose Ordered Sig/Beny Route Start Time Stop Time Status Last Admin Dose Admin Iohexol 100 ml ONCE ONCE IV 06/06/21 23:00 06/06/21 23:01 DC 06/07/21 00:43 100 ML Sodium Chloride 10 ml NEEDED PRN IV 06/06/21 23:00 12 00:44 10 ML Sodium Chloride 100 ml ONCE ONCE IV 06/06/21 23:00 06/06/21 23:01 DC 06/07/21 00:43 80 ML Vital Signs/I&O 06/06/21 22:22 Temp 37.6 Pulse 94 Resp 16 B/P (MAP) 140/58 (85) Pulse Ox 91 O2 Delivery Room Air 06/07/21 00:00 Intake Total 800 ml Balance 800 ml Capillary Refill : Progress Note #1: Progress Note Obtain basic labs and urine as well as blood cultures and lactic acid. Order chest x-ray since he reports coughing and having oxygen saturation between 90 and 92% on room air. Cardiac evaluation with electrocardiogram as well as telemetry monitoring and cardiac enzymes. CT scan of the abdomen and pelvis to evaluate for possible bowel obstruction, diverticulitis, cholecystitis, appendicitis, pyelonephritis. Give Reglan for recurrent nausea, normal saline for IV fluids for hydration. Progress Note #2: Progress Note Labs do show elevated glucose just under 300. His CBC had a white blood cell count of 10.8. His lactic acid was elevated to 3.25 but with no specific source for infection this is more likely related to his dehydration from the vomiting as well as elevated glucose. He also takes Metformin which can elevate his lactic acid some. His cardiac enzymes did not show any signs of acute coronary syndrome or myocardial infarction. Awaiting CT scan and urinalysis Progress Note #3: Progress Note Patient was able to urinate upon return from radiology. His CT scan did show a distended bladder and an enlarged prostate however he had no acute significant abnormality to account for his rigors and nausea with vomiting. He is tolerating oral intake in the ED and reports feeling better and asking when he will be able to go home. Progress Note #4: Progress Note Urine was concentrated with glucose and trace ketones. He was feeling better, tolerating po and able to stand and walk without difficulty. With no specific source of infection will discharge to home using Reglan for nausea. Encouraged to follow a liquid diet for 12 to 24 hours and then advance as tolerated to diabetic diet. Check back with the clinic for continued concerns. Will defer repeating the lactic acid since that is likely related back to dehydration and his sugar rather than any infection. ECG Initial ECG Impression Date: Jun 07, 2021 Initial ECG Impression Time: 00:06 Initial ECG Rate: 95 Initial ECG Rhythm: Normal Sinus Initial ECG Comparisson: No Previous ECG Available Comment Normal sinus rhythm with heart rate of 95 bpm. VT interval of [address] elevation. Borderline QT prolongation with QT interval of 396 ms with QTc interval of 498 ms. No previous tracing for comparison. Diagnostic Imaging Diagonstic Imaging: Xray Plain Films/CT/US/NM/MRI: chest Comments [facility] [place], [place] NAME: STEPHANY CROWE [facility] REC#: [id number] PT STATUS: REG ER : 1945 PHYSICIAN: EMIGDIO MAC MD ADMIT DATE: 06/06/21/ER FS Signed Date of Exam:06/06/21 CHEST 1 VIEW AP/PA ONLY EXAMINATION: Chest 1 view HISTORY: Cough. Shortness of breath. COMPARISON: 01/10/2021. FINDINGS: The lung volumes are normal. No focal consolidation is seen. No large pleural effusion or pneumothorax is seen. The cardiomediastinal silhouette is normal in size and contour. No acute osseous abnormality is seen. IMPRESSION: 1. No acute pleuroparenchymal process. Dictated by: Dictated on workstation # [id number] Dict: 06/06/212306 Trans: 06/06/212311 [facility] [id number] Interpreted by: JAMARI MOSQUERA DO Electronically signed by: JAMARI MOSQUERA DO 06/06/212311 Reviewed: Reviewed by Wi Diagonstic Imaging: CT Plain Films/CT/US/NM/MRI: abdomen, pelvis Comments Impression: 1. Distended urinary bladder. Correlate for any evidence of bladder outlet obstruction. 2. Subcutaneous fat stranding on the left greater than right bilateral lower ventral abdominal wall. Correlate for any evidence of cellulitis. Otherwise no acute findings in the abdomen or pelvis on CT. Read by radiologist Dr. Evan Saravia MD at 0054 and faxed at [phone] Reviewed: Reviewed [place] Study, Reviewed by Me Departure Impression Primary Impression: Nausea and vomiting in adult Additional Impressions: Vasovagal syncope Dehydration Disposition: HOME, SELF-CARE Condition: Stable Departure-Patient Inst. Decision time for Depature: 02:06 Referrals: [facility] (PCP/Family) Primary Care Physician Patient Instructions: Nausea and Vomiting, Adult ED, Fainting, Adult ED, Dehydration, Adult ED Add. Discharge Instructions: Do not take your medications that contain Metformin (Glucophage) for the next 48 hours. This medicine can interact with the IV dye given for your CT scan and cause damage to your kidneys. It is safe to use your Insulin and other medicines to control your sugars. Follow a liquid diet for 12-24 hours then advance as tolerated to more regular diabetic diet Use the Reglan (Metoclopramide) nausea medicine to help keep your stomach settled. Check with clinic for continued concerns and return for worsening symptoms Scripts Metoclopramide HCl (Metoclopramide HCl) 10 Mg Tablet 10 MG PO TID PRN for NAUSEA/VOMITING for 3 Days, #9 TAB 0 Refills Prov: EMIGDIO MAC MD 06/07/21 EMIGDIO MAC MD Jun 06, 2021 22:35
[2021-06-06] MEDS ORDERED: NS 100 ML (IVPB) BAG IV ONE (23:00)
[2021-06-06] MEDS ORDERED: CATHETER FLUSH 10 ML SYR IV PRN (23:00)
[2021-06-06] MEDS ORDERED: IOHEXOL 350 MG/ML 100 ML (OMNIPAQUE 350) VIAL IV ONE (23:00)
[2021-06-06] MEDS ORDERED: HOLD METFORMIN - RECEIVED CONTRAST 20 ML VIAL IV SCH (23:00)
--- NOTE | 2021-06-06 23:11 | Diagnostic Imaging Report ---
EXAMINATION: Chest 1 view HISTORY: Cough. Shortness of breath. COMPARISON: 01/10/2021. FINDINGS: The lung volumes are normal. No focal consolidation is seen. No large pleural effusion or pneumothorax is seen. The cardiomediastinal silhouette is normal in size and contour. No acute osseous abnormality is seen. IMPRESSION: 1. No acute pleuroparenchymal process. Dictated by: Dictated on workstation # [id number]
[2021-06-06 23:51] LABS: BASOPHILS % (AUTO) 1 % (0-10); EOSINOPHILS % (AUTO) 0 % (0-10); HEMATOCRIT 41 % (40-54); HEMOGLOBIN 13.9 g/dL (13.3-17.7); LYMPHOCYTES # (AUTO) 0.5 X 10^3 (1.0-4.0); LYMPHOCYTES % (AUTO) 5 % (12-44); MEAN CORPUSCULAR HEMOGLOBIN 31 pg (25-34); MEAN CORPUSCULAR HGB CONC 34 g/dL (32-36); MEAN CORPUSCULAR VOLUME 91 fL (80-99); MEAN PLATELET VOLUME 10.8 fL (9.0-12.2); MONOCYTES # (AUTO) 0.8 X 10^3 (0.0-1.0); MONOCYTES % (AUTO) 8 % (0-12); NEUTROPHILS # (AUTO) 9.3 X 10^3 (1.8-7.8); NEUTROPHILS % (AUTO) 86 % (42-75); PLATELET COUNT 136 10^3/uL (130-400); WHITE BLOOD COUNT 10.8 10^3/uL (4.3-11.0)
[2021-06-06 23:52] LABS: BASOPHILS # (AUTO) 0.1 10^3/uL (0.0-0.1)
[2021-06-07 00:05] LABS: CARBON DIOXIDE 21 MMOL/L (21-32); CHLORIDE 99 MMOL/L (98-107); POTASSIUM 3.9 MMOL/L (3.6-5.0); SODIUM 134 MMOL/L (135-145)
[2021-06-07 00:06] LABS: ALANINE AMINOTRANSFERASE 56 U/L (0-55); ALBUMIN 3.9 GM/DL (3.2-4.5); ALKALINE PHOSPHATASE 106 U/L (40-136); BILIRUBIN,TOTAL 0.5 MG/DL (0.1-1.0); BUN/CREATININE RATIO 17; CALCIUM 9.2 MG/DL (8.5-10.1); CREATININE SERUM 1.06 MG/DL (0.60-1.30); GFR ESTIMATED 68; GLUCOSE 294 MG/DL (70-105); MAGNESIUM 1.5 MG/DL (1.6-2.4); TOTAL PROTEIN 7.1 GM/DL (6.4-8.2)
[2021-06-07 00:13] LABS: ATYPICAL LYMPHOCYTES 4 %; BAND NEUTROPHILS 22 %; BASOPHILS % (MANUAL) 0 %; EOSINOPHILS % (MANUAL) 0 %; LYMPHOCYTES % (MANUAL) 4 %; MONOCYTES % (MANUAL) 7 %; NEUTROPHILS % (MANUAL) 63 %; PLATELET ESTIMATE DECREASED; RBC MORPH NORMAL
[2021-06-07 01:56] LABS: BILIRUBIN,URINE NEGATIVE (NEGATIVE); CLARITY,URINE CLEAR; COLOR,URINE YELLOW; GLUCOSE, URINE (UA) 3+ (NEGATIVE); KETONES,URINE TRACE (NEGATIVE); LEUKOCYTE ESTERASE ,URINE NEGATIVE (NEGATIVE); NITRITE,URINE NEGATIVE (NEGATIVE); PROTEIN,URINE NEGATIVE (NEGATIVE)
[2021-06-07 02:01] LABS: BACTERIA,URINE NEGATIVE /HPF; SQUAMOUS EPITHELIAL CELL,UR 0-2 /HPF; WBC,URINE 0-2 /HPF
[2021-06-07] MEDS ORDERED: MTC10T PO (02:08)
[2021-06-07] MEDS ORDERED: RX-METOCLOPRAMIDE 5 MG (REGLAN) TAB PPK#8 PO PRN ×2 (02:15→02:30)
--- NOTE | 2021-06-07 05:04 | Diagnostic Imaging Report ---
PROCEDURE: CT abdomen and pelvis with contrast. TECHNIQUE: Multiple contiguous axial images were obtained through the abdomen and pelvis after administration of intravenous contrast. Auto Exposure Controls were utilized during the CT exam to meet ALARA standards for radiation dose reduction. All CT scans use one or more of the following dose optimizing techniques: automated exposure control, MA and/or KvP adjustment based on patient size and exam type or iterative reconstruction. INDICATION: Nausea and emesis There is mild dependent atelectasis and/or pneumonitis in the left lung base. There is apparent surgical clip in the lower mediastinum. Below the diaphragm, there is low-density throughout the liver indicating steatosis. There is mildly nodular surface contour which could represent developing cirrhosis. Subcentimeter cyst is seen in the right hepatic lobe. Gallbladder wall thickness is at the upper limits of normal without significant pericolonic inflammation appreciated. No pancreatic, adrenal gland or acute splenic abnormality is seen. Occasional splenic calcified granulomas are noted. There is a dominant exophytic cyst in the left kidney measuring up to 6.7 cm in size. No free fluid is seen within the abdomen or pelvis. There is extensive distention of the urinary bladder with heterogeneous enlargement of the prostate gland with protrusion of the median lobe into the bladder base. There is no evidence of bowel obstruction. IMPRESSION: Hepatic steatosis and possible developing cirrhosis. Urinary bladder distention likely related to bladder obstruction given prostatic enlargement and clinical correlation is recommended. Dictated by: Dictated on workstation # [id number]
== END 2021-06-07 02:15 | disposition home or self-care (01) ==
LOC: EDUNIT# 22:22 → ER FS 22:24
DX: R11.2 Nausea with vomiting, unspecified (principal); R55 Syncope and collapse; E86.0 Dehydration; J44.9 Chronic obstructive pulmonary disease, unspecified; I10 Essential (primary) hypertension; E11.9 Type 2 diabetes mellitus without complications
CPT/HCPCS: 36415; 71045; 74177; 80053; 81000; 83605; 83690; 83735; 83880; 84484; 85007; 85027; 86141; 87040; 93005; 93041; 96374

== ENCOUNTER → 2021-07-12 | Outpatient (CLI) | payer MEDICARE ==
[~2021-07-12] MED LIST changes: -CATHETER FLUSH 10 ML SYR IV PRN; -HOLD METFORMIN - RECEIVED CONTRAST 20 ML VIAL IV SCH; -IOHEXOL 350 MG/ML 100 ML (OMNIPAQUE 350) VIAL IV ONE; +MTC10T PO; -NS 100 ML (IVPB) BAG IV ONE
[2021-07-12 13:32] LABS: BASOPHILS # (AUTO) 0.1 10^3/uL (0.0-0.1); BASOPHILS % (AUTO) 1 % (0-10); EOSINOPHILS # (AUTO) 0.2 10^3/uL (0.0-0.3); EOSINOPHILS % (AUTO) 2 % (0-10); HEMATOCRIT 45 % (40-54); LYMPHOCYTES # (AUTO) 2.2 10^3/uL (1.0-4.0); LYMPHOCYTES % (AUTO) 26 % (12-44); MEAN CORPUSCULAR HEMOGLOBIN 31 pg (25-34); MEAN CORPUSCULAR HGB CONC 34 g/dL (32-36); MEAN CORPUSCULAR VOLUME 92 fL (80-99); MEAN PLATELET VOLUME 10.5 fL (9.0-12.2); MONOCYTES # (AUTO) 0.6 10^3/uL (0.0-1.0); MONOCYTES % (AUTO) 6 % (0-12); NEUTROPHILS # (AUTO) 5.5 10^3/uL (1.8-7.8); NEUTROPHILS % (AUTO) 64 % (42-75); PLATELET COUNT 179 10^3/uL (130-400); WHITE BLOOD COUNT 8.5 10^3/uL (4.3-11.0)
[2021-07-12 13:50] LABS: ALBUMIN 4.1 GM/DL (3.2-4.5); BILIRUBIN,TOTAL 0.5 MG/DL (0.1-1.0); CALCIUM 9.7 MG/DL (8.5-10.1); CREATININE SERUM 1.2 MG/DL (0.60-1.30); POTASSIUM 4.3 MMOL/L (3.6-5.0); TOTAL PROTEIN 7.6 GM/DL (6.4-8.2)
== END ==
LOC: ONC 13:13
PROVIDERS: ATTEND Internal Medicine Hematology & Oncology
DX: C34.31 Malignant neoplasm of lower lobe, right bronchus or lung (principal); K74.60 Unspecified cirrhosis of liver; E66.9 Obesity, unspecified
CPT/HCPCS: 80053; 85025